=== PATIENT | male | born 1960 | race Caucasian/White ===

== ENCOUNTER 2017-07-06 09:06 | Emergency (ER) | payer BC ==
[~2017-07-06] VITALS: Ht 182.9 cm; Wt 93.9 kg
[~2017-07-06 09:06] MED LIST: ATEN25 PO; ATEN50 PO; CINNAMON PO; CRUTCH4 USE; DICL75ER PO; Flomax0.4 MG PO; HYDACE5 PO; LOVASA PO; METF500 PO; MULVITA PO; OMEG1CAP30 PO; OXYACE5T PO; Percocet 5-3251 EACH PO; ZOLP5 PO; Zofran8 MG PO
[2017-07-06] MEDS ORDERED: HYDR1TAB94 (10:02)
[2017-07-06] MEDS ORDERED: AMLO5 PO (10:02)
[2017-07-06] MEDS ORDERED: Allopurinol100 MG PO (10:02)
[2017-07-06] MEDS ORDERED: PRED20 (10:03)
[2017-07-06 10:09] LABS: BASOPHILS ABSOLUTE AUTO 0.04 K/mm3 (0.00-0.23); BASOPHILS PERCENT AUTO 0 % (0-2); EOSINOPHILS ABSOLUTE AUTO 0.05 K/mm3 (0.00-0.68); EOSINOPHILS PERCENT AUTO 0 % (0-6); Hematocrit 42.5 % (37.0-53.0); Hemoglobin 14.2 g/dL (13.5-17.5); IMMATURE GRAN ABSOLUTE AUTO 0.36 K/mm3 (0.00-0.10); IMMATURE GRAN PERCENT AUTO 3 % (0-1); LYMPHOCYTES ABSOLUTE AUTO 2.23 K/mm3 (0.84-5.20); LYMPHOCYTES PERCENT AUTO 19 % (21-46); MONOCYTES ABSOLUTE AUTO 0.84 K/mm3 (0.16-1.47); MONOCYTES PERCENT AUTO 7 % (4-13); Mean Corpuscular HGB 31.1 pg (26.0-34.0); Mean Corpuscular HGB Conc 33.4 g/dL (31.5-36.5); Mean Corpuscular Volume 93 fL (80-100); NEUTROPHILS ABSOLUTE AUTO 8.28 K/mm3 (1.96-9.15); NEUTROPHILS PERCENT AUTO 70 % (41-73); Platelet Count 245 K/mm3 (150-400); RDW Coefficient Variation 12.1 % (11.7-14.2); RDW Standard Deviation 42.1 fL (35.1-46.3); Red Blood Cell Count 4.56 M/mm3 (4.30-5.90)
[2017-07-06 10:31] LABS: Alanine Aminotransfer (ALT/SGP 33 U/L (12-78); Albumin, Blood 3.5 g/dL (3.4-5.0); Albumin/Globulin Ratio 0.9 (0.8-1.8); Alk Phos 73 U/L (50-136); Anion Gap 8 mmol/L (6-16); Aspartate Aminotrans (AST/SGOT 9 U/L (12-37); Bilirubin, Total 0.5 mg/dL (0.1-1.0); Blood Urea Nitrogen 25 mg/dL (8-24); Bun/Creatinine Ratio 31.6 (12.0-20.0); CO2, Blood 26 mmol/L (21-32); Chloride, Blood 103 mmol/L (98-108); Creatinine, Blood 0.79 mg/dL (0.60-1.20); Glomerular Filtration Rate >60 (60-); Glucose, Blood 127 mg/dL (70-99); Potassium, Blood 4.3 mmol/L (3.5-5.5); Sodium, Blood 137 mmol/L (136-145); Total Protein, Blood 7.5 g/dL (6.4-8.2)
[2017-07-06] MEDS ORDERED: COLCHICINE0.6 MG PO (10:45)
[2017-07-06] MEDS ORDERED: Indomethacin50 MG PO (10:45)
== END 2017-07-06 10:55 | disposition home or self-care (01) ==
LOC: ER 09:06
PROVIDERS: Physician Assistant
DX: M10.072 Idiopathic gout, left ankle and foot (principal); Z88.2 Allergy status to sulfonamides; Z79.899 Other long term (current) drug therapy; Z87.891 Personal history of nicotine dependence; Z79.52 Long term (current) use of systemic steroids
CPT/HCPCS: 36415; 73630; 80053; 84550; 85025; 96372; 99283; J1885

== ENCOUNTER 2019-03-05 06:47 | Day surgery (SDC) | payer BC ==
[~2019-03-05] VITALS: Ht 182.9 cm; Wt 88.4 kg
[~2019-03-05 06:47] MED LIST changes: +ALLO300 PO; +AMLO10 PO; +AMLO5 PO; +Allopurinol100 MG PO; +COLCHICINE0.6 MG PO; +DIAZ5 PO; +FISH OIL 1,0001 EAC1 PO; +HYDR1TAB94; +Indomethacin50 MG PO; +LOSA50 PO; +OMEPRAZOLE20 MG PO; +PRED20; +ZOLP10 PO
== END 2019-03-05 08:42 | disposition home or self-care (01) ==
LOC: ORSCSDS 06:47
PROVIDERS: Internal Medicine Gastroenterology
PROC: 0DBN8ZX Excision of Sigmoid Colon, Via Natural or Artificial Opening Endoscopic, Diagnostic (ICD-10-PCS; principal; 2019-03-05 08:00)
PROC: 0DBH8ZX Excision of Cecum, Via Natural or Artificial Opening Endoscopic, Diagnostic (ICD-10-PCS; principal; 2019-03-05 08:00)
DX: Z12.11 Encounter for screening for malignant neoplasm of colon (principal); Z86.010 Personal history of colon polyps; D12.0 Benign neoplasm of cecum; D12.5 Benign neoplasm of sigmoid colon; K64.8 Other hemorrhoids; I10 Essential (primary) hypertension; Z79.899 Other long term (current) drug therapy
CPT/HCPCS: 88305; J2405; J2704; J7120

== ENCOUNTER 2019-04-29 09:20 | Day surgery (SDC) | payer BC ==
[~2019-04-29] VITALS: Ht 182.9 cm; Wt 91.1 kg
--- NOTE | 2019-04-29 09:50 | NUR ---
04/29/19 0981 Jyotsna Simpson BLOOD DRAWN AND ANTICOAG ADDED, DELIVERED TO OR, SPUN FOR PRP.
--- NOTE | 2019-04-29 14:35 | NUR ---
04/29/19 1435 Jessie Guallpa DC INSTRUCTIONS WITH INCENTIVE SPIROMETER DEMO, POLAR PK DEMO AND ULTRASLING MGMT. BOTH PT AND HIS SURENDRA STATED UNDERSTANDING. PT HAD NO PAIN AND NO NAUSEA T/O RECOVERY
== END 2019-04-29 14:40 | disposition home or self-care (01) ==
LOC: ORSCSDS 09:20
PROVIDERS: Orthopaedic Surgery
PROC: 0RNK4ZZ Release Left Shoulder Joint, Percutaneous Endoscopic Approach (ICD-10-PCS; principal; 2019-04-29 11:00)
PROC: 0LS24ZZ Reposition Left Shoulder Tendon, Percutaneous Endoscopic Approach (ICD-10-PCS; principal; 2019-04-29 11:00)
PROC: 0LQ24ZZ Repair Left Shoulder Tendon, Percutaneous Endoscopic Approach (ICD-10-PCS; principal; 2019-04-29 11:00)
DX: M75.122 Complete rotator cuff tear or rupture of left shoulder, not specified as traumatic (principal); M75.22 Bicipital tendinitis, left shoulder; M75.42 Impingement syndrome of left shoulder; I10 Essential (primary) hypertension; E78.5 Hyperlipidemia, unspecified; Z79.899 Other long term (current) drug therapy
CPT/HCPCS: C1713; J0171; J0690; J1100; J2250; J2370; J2405; J2704; J2795; J3010; J7120

== ENCOUNTER 2024-04-07 08:54 | Day surgery (SDC) | payer BC ==
[~2024-04-07] VITALS: Ht 182.9 cm; Wt 91.0 kg
[~2024-04-07 08:54] MED LIST changes: +Balanced Salt Epinephrine Irrigation Solution 500 mL IR SCH; +LOSARTAN-HCTZ1 EAC6 PO; +Lidocaine HCl/Pf 1% 5 ML VIAL XX SCH; +Moxifloxacin HCL 0.5 MG/0.1 ML 0.4MLSYR RIGHTEYE SCH; +NS 500 ML IV ONE; +PHENYLEPHRINE\\TROPICAMIDE\\TETRACAINE OPHTHALMIC DILATING SOLN RIGHTEYE PRN; +Povidone-Iodine 450 DROP/30 ML Solution ONE; +Povidone-Iodine 450 DROP/30 ML Solution RIGHTEYE SCH; +Tetracaine HCl/Pf 0.5% Opth Soln 4 ml ONE; +Triamcinolone Inj Susp 40 MG / ML 1ML Vial INJ SCH; +Triamcinolone Inj Susp 40 MG / ML 1ML Vial ONE
[2024-04-07] MEDS ORDERED: NS 500 ML IV ONE (09:32)
[2024-04-07] MEDS ORDERED: NAPROXEN500 MG PO (09:35)
[2024-04-07] MEDS ORDERED: Midazolam HCl 1MG / ML 2ML Vial ONE (10:17)
[2024-04-07 10:45] VITALS: BP 120/82
== END 2024-04-07 10:56 | disposition home or self-care (01) ==
LOC: ORSCSDS 08:54
PROVIDERS: Ophthalmology
PROC: 08RJ3JZ Replacement of Right Lens with Synthetic Substitute, Percutaneous Approach (ICD-10-PCS; principal; 2024-04-07 10:30)
DX: H25.813 Combined forms of age-related cataract, bilateral (principal); H52.4 Presbyopia; I10 Essential (primary) hypertension; Z79.899 Other long term (current) drug therapy
CPT/HCPCS: J2250; J3301; J7040; V2632

== ENCOUNTER 2024-04-14 08:45 | Day surgery (SDC) | payer BC ==
[~2024-04-14] VITALS: Ht 182.9 cm; Wt 93.3 kg
[~2024-04-14 08:45] MED LIST changes: +Moxifloxacin HCL 0.5 MG/0.1 ML 0.4MLSYR LEFTEYE SCH; -Moxifloxacin HCL 0.5 MG/0.1 ML 0.4MLSYR RIGHTEYE SCH; +NAPROXEN500 MG PO; +PHENYLEPHRINE\\TROPICAMIDE\\TETRACAINE OPHTHALMIC DILATING SOLN LEFTEYE PRN; -PHENYLEPHRINE\\TROPICAMIDE\\TETRACAINE OPHTHALMIC DILATING SOLN RIGHTEYE PRN; +Povidone-Iodine 450 DROP/30 ML Solution LEFTEYE SCH; -Povidone-Iodine 450 DROP/30 ML Solution RIGHTEYE SCH
[2024-04-14] MEDS ORDERED: NS 500 ML IV ONE (09:22)
--- NOTE | 2024-04-14 09:32 | NUR ---
04/14/24 0932 Deborah Chirinos IN AT 0925 PLEMACRELO IN AT 0926 CALL LIGHT AT BEDSIDE
[2024-04-14] MEDS ORDERED: Midazolam HCl 1MG / ML 2ML Vial ONE ×2 (10:05→10:17)
[2024-04-14 11:00] VITALS: BP 128/95
--- NOTE | 2024-04-14 11:00 | NUR ---
04/14/24 Rao Hanks PT INSTRUCTED TO MONITOR B/P AT HOME AND FOLLOW UP WITH PCP, IF NEEDED.
== END 2024-04-14 10:51 | disposition home or self-care (01) ==
LOC: ORSCSDS 08:45
PROVIDERS: Ophthalmology
PROC: 08RK3JZ Replacement of Left Lens with Synthetic Substitute, Percutaneous Approach (ICD-10-PCS; principal; 2024-04-14 10:30)
DX: H25.12 Age-related nuclear cataract, left eye (principal); Z96.1 Presence of intraocular lens; H52.202 Unspecified astigmatism, left eye; H52.4 Presbyopia; I10 Essential (primary) hypertension; Z79.899 Other long term (current) drug therapy
CPT/HCPCS: J2250; J3301; J7040; V2632